=== PATIENT | female | born 1980 | race African-American/Black ===

== ENCOUNTER 2016-05-22 08:47 | Emergency (ER) | payer OTHER ==
[~2016-05-22] VITALS: Ht 149.9 cm; Wt 76.7 kg
[2016-05-22 08:49] VITALS: BP 113/85
--- NOTE | 2016-05-22 10:28 | PHYS DOC ---
Past Medical History Past Medical History: Anxiety, Bipolar, Depression, Diabetes-Type II, Hypertension, Schizophrenia Additional Past Medical Histor: HERNIA Past Surgical History: Other Additional Past Surgical Histo: HERNIA Additional Information: 8 cigarettes daily Alcohol Use: None Drug Use: Marijuana Adult General Chief Complaint Chief Complaint: DENTAL PROBLEM HPI HPI Patient is a 35 year old female presents to the emergency department stating that she is having left lower dental pain for the last 2 days. She states she does not have a dentist. She states that she's been running low-grade fevers at home she's been taken aspirin for the pain without relief. She denies any nausea or vomiting. Review of Systems Review of Systems Constitutional: subjective low grade fever Eyes: Denies change in visual acuity, redness, or eye pain [] HENT: Denies nasal congestion or sore throat. Dental pain, left lower [] Cardiovascular: No additional information not addressed in HPI [] GI: Denies abdominal pain, nausea, vomiting, bloody stools or diarrhea [] : Denies dysuria or hematuria [] Musculoskeletal: Denies back pain or joint pain [] Integument: Denies rash or skin lesions [] Neurologic: Denies headache, focal weakness or sensory changes [] Current Medications Current Medications Current Medications Medications (Trade) Dose Ordered Sig/Donny Start Time Stop Time Status Last Admin Dose Admin Acetaminophen/ Hydrocodone Bitart (Lortab 5/325) 1 tab 1X ONCE 05/22/16 10:30 05/22/16 10:31 DC 05/22/16 10:18 1 TAB Allergies Allergies Allergies Coded Allergies Type Severity Reaction Last Updated Verified No Known Drug Allergies 06/05/14 No Physical Exam Physical Exam Constitutional: Well developed, well nourished, no acute distress, non-toxic appearance. [] HENT: Normocephalic, atraumatic, bilateral external ears normal, oropharynx moist, no oral exudates, nose normal. Bilateral tympanic membranes appeared normal. Patient with swelling noted along the left lower gum line with her as a tooth that appears to be cracked and broken off down to the gumline. She does have left cervical anterior adenopathy Eyes: PERRLA, EOMI, conjunctiva normal, no discharge. [] Neck: Normal range of motion, no tenderness, supple, no stridor. [] Cardiovascular:Heart rate regular rhythm, no murmur [] Lungs & Thorax: Bilateral breath sounds clear to auscultation [] Skin: Warm, dry, no erythema, no rash. [] Back: No tenderness Extremities: No tenderness, no cyanosis, no clubbing, ROM intact, no edema. [] Neurologic: Alert and oriented X 3, normal motor function, normal sensory function, no focal deficits noted. [] Psychologic: Affect normal, judgement normal, mood normal. [] Current Patient Data Vital Signs Vital Signs Date Time Temp Pulse Resp B/P Pulse Ox O2 Delivery O2 Flow Rate FiO2 05/22/16 08:49 99.1 116 16 97 Room Air 99.1 EKG EKG [] Radiology/Procedures Radiology/Procedures [] Course & Med Decision Making Course & Med Decision Making Pertinent Labs and Imaging studies reviewed. (See chart for details) Patient will be discharged home in stable condition. She'll be provided with hydrocodone for severe pain and discomfort. She'll be placed on Augmentin with recommendations to follow-up with a dentist within the next week. Patient agrees with discharge instructions treatment regimens and follow-up recommendations. Signs and symptoms to return back to emergency department as been provided. [] Dragon Disclaimer Dragon Disclaimer This electronic medical record was generated, in whole or in part, using a voice recognition dictation system. Departure Departure Impression: Primary Impression: Pain, dental Additional Impression: Dental abscess Disposition: 01 HOME, SELF-CARE Condition: STABLE Referrals: NON,STAFF (PCP) Patient Instructions: Dental Abscess, Dental Pain, [id number] Additional Instructions: Activity as tolerated. Medication as prescribed. Hydrocodone will cause drowsiness do not take any be alert and oriented. Follow-up with the dentist within the week. Return back to emergency prior signs symptoms of become worse. Scripts Hydrocodone/Apap 5-325 (Leonore 5-325 Tablet)1 Each Tablet1 Tab PO PRN Q6HRS PRN PAIN #10 TAB Prov:KRISTEN POND APRN 05/22/16 Amoxicillin/Potassium Clav (Augmentin 875-125 Tablet)1 Each Tablet1 Tab PO QID # 40 TAB Prov:KRISTEN POND APRN 05/22/16 Problem Qualifiers KRISTEN POND APRN May 22, 2016 10:28
[2016-05-22] MEDS ORDERED: HYDROCODONE/APAP 5/325MG TABLET. PO ONE (10:30)
[2016-05-22] MEDS ORDERED: AMOX1TAB61 PO (10:47)
[2016-05-22] MEDS ORDERED: HYDR-971 PO (10:47)
== END 2016-05-22 11:07 | disposition home or self-care (01) ==
LOC: ER 08:47
DX: K04.7 Periapical abscess without sinus (principal); E11.9 Type 2 diabetes mellitus without complications; I10 Essential (primary) hypertension; F20.9 Schizophrenia, unspecified; F17.210 Nicotine dependence, cigarettes, uncomplicated; F12.10 Cannabis abuse, uncomplicated
CPT/HCPCS: 99283

== ENCOUNTER 2016-07-12 12:21 | Emergency (ER) | payer SELFPAY ==
[~2016-07-12] VITALS: Ht 149.9 cm; Wt 81.2 kg
[~2016-07-12 12:21] MED LIST: AMOX1TAB61 PO; HYDR-971 PO
[2016-07-12 12:25] VITALS: BP 126/64
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
[2016-07-12] MEDS ORDERED: CYCL10TA2 PO (13:35)
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
== END 2016-07-12 13:41 | disposition home or self-care (01) ==
LOC: ER 12:21
DX: M54.5 Low back pain (principal); R07.89 Other chest pain; M54.6 Pain in thoracic spine; I10 Essential (primary) hypertension; E11.9 Type 2 diabetes mellitus without complications; F20.9 Schizophrenia, unspecified; F31.9 Bipolar disorder, unspecified; F41.9 Anxiety disorder, unspecified; F43.10 Post-traumatic stress disorder, unspecified; F12.10 Cannabis abuse, uncomplicated; V49.49XA Driver injured in collision with other motor vehicles in traffic accident, initial encounter; Y93.89 Activity, other specified; Y99.8 Other external cause status; Y92.488 Other paved roadways as the place of occurrence of the external cause
CPT/HCPCS: 71120; 72072; 72100; 81025; 84703; 99284